=== PATIENT | female | born 1980 | race American Indian/Alaskan Native ===

== ENCOUNTER 2022-12-22 15:59 | Emergency (ER) | payer BC ==
[~2022-12-22] VITALS: Ht 170.2 cm; Wt 118.2 kg
[2022-12-22] MEDS ORDERED: ipratropium/albuterol 3ml nebule NEB ONE (17:20)
[2022-12-22] MEDS ORDERED: predniSONE 20 mg tablet PO ONE (17:20)
[2022-12-22] MEDS ORDERED: PRED20TA PO (17:49)
[2022-12-22] MEDS ORDERED: CEPH250T PO (17:49)
[2022-12-22] MEDS ORDERED: ALBU6.7H14 INH (17:49)
[2022-12-22] MEDS ORDERED: cephalexin 250mg capsule PO ONE (17:50)
--- NOTE | 2022-12-22 18:03 | NUR ---
PROVIDER ORDERED KEFLEX FOR PT DESPITE ALLERGY TO PCN. CALL FROM PHARMACIST TO CONFIRM ALLERGIES. PT STATES HER ALLERGY IS PCN SPECIFIC AND HAS HAD KEFLEX AND AMOXICILLICN SEVERAL TIMES SINCE CHILDHOOD AND HAS HAD NO ISSUES AND IS AGREEABLE TO TAKING KEFLEX. PHARMACIST MADE AWARE OF PT STATEMENT.
[2022-12-22 18:06] VITALS: BP 149/96
== END 2022-12-22 18:09 | disposition home or self-care (01) ==
LOC: ER 16:00
DX: J20.9 Acute bronchitis, unspecified (principal); J18.9 Pneumonia, unspecified organism; Z72.0 Tobacco use; Z88.0 Allergy status to penicillin; Z88.5 Allergy status to narcotic agent
CPT/HCPCS: 71046; 94640; 99283; J7512; 94760